=== PATIENT | male | born 1945 | race Caucasian/White ===

== ENCOUNTER 2017-07-30 09:28 | Day surgery (SDC) | payer OTHER, BC ==
[~2017-07-30] VITALS: Ht 182.9 cm; Wt 70.8 kg
[~2017-07-30 09:28] MED LIST: ACIDOPHILUS1 EAC3 PO; CLARITIN,ALAVAR10 MG PO; COMBIVENT RESPIM4 GM IH; ENDOCET 10-3251 EACH PO; FLEXERIL10 MG PO; FLONASE SENSIM9.9 ML BOTH NARES; GLUCOPHAGE500 MG PO; GLUCOTROL5 MG PO; JANUVIA100 MG PO; LIPITOR20 MG PO; LO-DOSE ASPIRIN81 M2 PO; PAXIL40 MG PO; PRILOSEC20 MG PO; PROMETHAZINE HC25 M1 PO; SYMBICORT60 INHALAT IH; SYNTHROID75 MCG PO; TIROSINT75 MCG PO; ZESTRIL5 MG PO
== END 2017-07-30 11:45 | disposition home or self-care (01) ==
LOC: PAIN 09:28 → SDC 10:45 → PAIN 11:45
PROVIDERS: Anesthesiology Pain Medicine
DX: M47.812 Spondylosis without myelopathy or radiculopathy, cervical region (principal); M54.12 Radiculopathy, cervical region; M79.1 Myalgia; I10 Essential (primary) hypertension; E11.9 Type 2 diabetes mellitus without complications; J44.9 Chronic obstructive pulmonary disease, unspecified; E03.9 Hypothyroidism, unspecified; Z87.891 Personal history of nicotine dependence; Z79.82 Long term (current) use of aspirin; Z79.84 Long term (current) use of oral hypoglycemic drugs; Z79.891 Long term (current) use of opiate analgesic
CPT/HCPCS: 82948; J1030; J2250; S0020

== ENCOUNTER 2017-10-29 11:25 | Day surgery (SDC) | payer OTHER, BC ==
[~2017-10-29] VITALS: Ht 182.9 cm; Wt 70.8 kg
[~2017-10-29 11:25] MED LIST changes: +FLONASE ALLERG9.9 ML BOTH NARES; -FLONASE SENSIM9.9 ML BOTH NARES; +ULTRAM50 MG PO
== END 2017-10-29 13:52 | disposition home or self-care (01) ==
LOC: PAIN 11:25 → SDC 12:30 → PAIN 13:52
PROVIDERS: Anesthesiology Pain Medicine
PROC: 3E0T3TZ Introduction of Destructive Agent into Peripheral Nerves and Plexi, Percutaneous Approach (ICD-10-PCS; principal; 2017-10-29)
PROC: BR141ZZ Fluoroscopy of Cervical Facet Joint(s) using Low Osmolar Contrast (ICD-10-PCS; principal; 2017-10-29)
DX: M47.812 Spondylosis without myelopathy or radiculopathy, cervical region (principal); M46.92 Unspecified inflammatory spondylopathy, cervical region; M79.2 Neuralgia and neuritis, unspecified; Z79.84 Long term (current) use of oral hypoglycemic drugs; Z88.2 Allergy status to sulfonamides
CPT/HCPCS: 82948; J1030; J2250; J3010; S0020